=== PATIENT | male | born 1970 | race Caucasian/White ===

== ENCOUNTER 2023-04-24 12:14 | Emergency (ER) | payer OTHER ==
[2023-04-24 13:26] VITALS: BP 127/78; PULSE 85; RESP 16; TEMP 97.6; BMI 32.6
[2023-04-24] MEDS ORDERED: IBUPROFEN 600 MG TABLET (FP) PO ONE ×2 (13:33→13:36)
[2023-04-24] MEDS ORDERED: CYCLOBENZAPRINE HCL 10 MG TABLET (FP) PO ONE (13:33)
[2023-04-24] MEDS ORDERED: CYCLOBENZAPRINE HCL 10 MG TABLET (FP) ONE (13:36)
== END 2023-04-24 13:41 | disposition home or self-care (01) ==
LOC: JER 12:14 → JERFT 12:14
DX: S76.312A Strain of muscle, fascia and tendon of the posterior muscle group at thigh level, left thigh, initial encounter (principal); M79.652 Pain in left thigh; X50.9XXA Other and unspecified overexertion or strenuous movements or postures, initial encounter; Y93.02 Activity, running
CPT/HCPCS: 99283-25